=== PATIENT | female | born 1960 | race Caucasian/White ===

== ENCOUNTER 2020-11-16 04:50 | Emergency (ER) | payer MEDICARE ==
[~2020-11-16 04:50] MED LIST: ABILIFY5 MG PO; AMOXICILLIN500 MG PO; ASPIRIN325 MG PO; BACTRIM DS TAB1 EACH PO; BENTYL10 MG PO; BUSPIRONE HCL15 MG PO; COREG25 MG PO; DIAZEPAM10 MG PO; IMITREX50 MG PO; NEURONTIN300 MG PO; PAXIL40 MG PO; PERCOCET 7.5/321 TAB PO; SYNTHROID75 MCG PO; TIZANIDINE HCL4 MG PO; TRAZODONE 150M150 MG PO; VALTREX1000 MG PO; VICODIN 10/3251 EACH PO; VOLTAREN **OUT75 MG PO; ZOFRAN8 MG PO
[2020-11-16] MEDS ORDERED: ZOFRAN4 M1 PO (05:28)
[2020-11-16] MEDS ORDERED: ANTIVERT25 MG PO (05:28)
== END 2020-11-16 06:24 | disposition home or self-care (01) ==
LOC: FER 04:50
DX: S06.0X0A Concussion without loss of consciousness, initial encounter (principal); I10 Essential (primary) hypertension; F17.210 Nicotine dependence, cigarettes, uncomplicated; W19.XXXA Unspecified fall, initial encounter; Y92.009 Unspecified place in unspecified non-institutional (private) residence as the place of occurrence of the external cause
CPT/HCPCS: 70450

== ENCOUNTER 2021-01-03 17:44 | Emergency (ER) | payer MEDICARE ==
[~2021-01-03 17:44] MED LIST changes: +ANTIVERT25 MG PO; +ZOFRAN4 M1 PO
[2021-01-03 18:29] LABS: BILIRUBIN NEGATIVE (NEGATIVE); BLOOD 1+ Ery/uL (NEGATIVE); CLARITY HAZY (CLEAR); COLOR YELLOW (YELLOW); GLUCOSE (U) NORMAL (NORMAL); LEUKOCYTES 3+ Leu/uL (NEGATIVE); NITRITE POSITIVE (NEGATIVE); PROTEIN NEGATIVE (NEGATIVE); UROBILINOGEN 0.2 mg/dL (0.2-1.0)
[2021-01-03 18:37] LABS: BASOPHIL 0.3 % (0-2); EOSINOPHIL 2.5 % (0-5); HCT 46.2 % (37.0-47.0); HGB 16.2 g/dl (12.5-16.0); LYMPHOCYTE 43.5 % (15-48); MCHC 35.1 g/dL (32.0-36.0); MCV 88.3 fL (78.0-100.0); MONOCYTE 6.7 % (0-12); MPV 9.1 fL (6.0-9.5); NEUTROPHIL 46.8 % (41-80); NRBC 0; PLT 256 K/uL (150-400); RBC 5.23 M/uL (4.20-5.40); RDW 11.4 % (11.5-14.0)
[2021-01-03 18:39] LABS: WBC 11.8 K/uL (4.0-10.5)
[2021-01-03 18:46] LABS: BACTERIA 4+; URINARY WBC TNTC
[2021-01-03 18:53] LABS: ALBUMIN 3.3 g/dL (3.4-5.0); BILIRUBIN - TOTAL 0.4 mg/dL (0.2-1.0); BUN/CREAT RATIO (CALC) 18.6 RATIO; CREATININE 0.59 mg/dL (0.51-0.95); GLOBULIN (CALCULATION) 3.8 g/dL; POTASSIUM 4.2 mmol/L (3.5-5.1); TOTAL PROTEIN 7.1 g/dL (6.4-8.2)
[2021-01-03] MEDS ORDERED: BACTRIM DS TAB1 EACH PO (20:57)
[2021-01-03] MEDS ORDERED: ZOFRAN4 M1 PO (20:57)
[2021-01-06 00:06] LABS: CHLAMYDIA TRACHOMATIS, NAA Negative (Negative); NEISSERIA GONORRHOEAE, NAA Negative (Negative)
== END 2021-01-03 21:40 | disposition home or self-care (01) ==
LOC: FER 17:44
PROVIDERS: Emergency Medicine; Nurse Practitioner Family
DX: N39.0 Urinary tract infection, site not specified (principal); I10 Essential (primary) hypertension; F17.210 Nicotine dependence, cigarettes, uncomplicated; Z90.49 Acquired absence of other specified parts of digestive tract; Z98.890 Other specified postprocedural states; Z98.1 Arthrodesis status
CPT/HCPCS: 36415; 80053; 81001; 82150; 83690; 85025; 87076; 87088; 87186; 87491; 87591; J0696; J1885; J2405; J7030; Q9967

== ENCOUNTER 2021-05-03 15:43 | Emergency (ER) | payer MEDICARE ==
[2021-05-03 16:42] LABS: BILIRUBIN NEGATIVE (NEGATIVE); BLOOD 2+ Ery/uL (NEGATIVE); CLARITY CLEAR (CLEAR); COLOR YELLOW (YELLOW); GLUCOSE (U) NORMAL (NORMAL); LEUKOCYTES 3+ Leu/uL (NEGATIVE); NITRITE NEGATIVE (NEGATIVE); PROTEIN 1+ mg/dL (NEGATIVE); UROBILINOGEN 0.2 mg/dL (0.2-1.0)
[2021-05-03 16:45] LABS: BACTERIA 2+
[2021-05-03 16:47] LABS: AMPHETAMINES NEGATIVE (NEGATIVE); BARBITURATES NEGATIVE (NEGATIVE); ECSTASY (MDMA) NEGATIVE (NEGATIVE); MARIJUANA (THC) NEGATIVE (NEGATIVE); METHADONE NEGATIVE (NEGATIVE); OPIATES POSITIVE (NEGATIVE); OXYCODONE NEGATIVE (NEGATIVE)
[2021-05-03 16:53] LABS: BASOPHIL 0.4 % (0-2); EOSINOPHIL 1.2 % (0-5); HCT 43.5 % (37.0-47.0); HGB 15.6 g/dl (12.5-16.0); LYMPHOCYTE 31.4 % (15-48); MCH 31.1 pg (25.0-31.0); MCHC 35.9 g/dL (32.0-36.0); MCV 86.7 fL (78.0-100.0); MONOCYTE 5.5 % (0-12); MPV 9.2 fL (6.0-9.5); NEUTROPHIL 61.2 % (41-80); NRBC 0; PLT 217 K/uL (150-400); RBC 5.02 M/uL (4.20-5.40); RDW 11.4 % (11.5-14.0); WBC 11.2 K/uL (4.0-10.5)
[2021-05-03 17:12] LABS: ALBUMIN 3.7 g/dL (3.4-5.0); BILIRUBIN - TOTAL 0.5 mg/dL (0.2-1.0); BUN/CREAT RATIO (CALC) 17.1 RATIO; CREATININE 0.7 mg/dL (0.51-0.95); GLOBULIN (CALCULATION) 3.6 g/dL; POTASSIUM 4.3 mmol/L (3.5-5.1); TOTAL PROTEIN 7.3 g/dL (6.4-8.2)
[2021-05-03 18:03] LABS: LACTIC ACID 1.7 mmol/L (0.4-1.9)
[2021-05-03] MEDS ORDERED: AUGMENTIN 875-1 EACH PO (21:25)
[2021-05-03] MEDS ORDERED: ZOFRAN4 M1 PO (21:25)
== END 2021-05-03 21:53 | disposition home or self-care (01) ==
LOC: FER 15:43
PROVIDERS: Nurse Practitioner Family
DX: N39.0 Urinary tract infection, site not specified (principal); Z90.49 Acquired absence of other specified parts of digestive tract; Z86.73 Personal history of transient ischemic attack (TIA), and cerebral infarction without residual deficits; Z98.890 Other specified postprocedural states; F41.9 Anxiety disorder, unspecified; E03.9 Hypothyroidism, unspecified; R00.0 Tachycardia, unspecified; Z79.82 Long term (current) use of aspirin; Z79.891 Long term (current) use of opiate analgesic; Z79.899 Other long term (current) drug therapy; R07.89 Other chest pain; R30.0 Dysuria; R10.84 Generalized abdominal pain
CPT/HCPCS: 36415; 80053; 80305; 81001; 83605; 84145; 84484; 85025; 87040; 87076; 87088; 87186; 93005; J0696; J1170; J2270; J2405; J7030; Q9967

== ENCOUNTER 2021-12-11 11:28 | Emergency (ER) | payer MEDICARE ==
[~2021-12-11 11:28] MED LIST changes: +AUGMENTIN 875-1 EACH PO
[2021-12-11 12:04] LABS: BASOPHIL 0.4 % (0-2); EOSINOPHIL 1.4 % (0-5); HCT 44.4 % (37.0-47.0); HGB 15.4 g/dl (12.5-16.0); LYMPHOCYTE 32.7 % (15-48); MCH 30.1 pg (25.0-31.0); MCHC 34.7 g/dL (32.0-36.0); MCV 86.9 fL (78.0-100.0); MONOCYTE 4.7 % (0-12); MPV 8.8 fL (6.0-9.5); NEUTROPHIL 60.6 % (41-80); NRBC 0; PLT 238 K/uL (150-400); RBC 5.11 M/uL (4.20-5.40); RDW 11.8 % (11.5-14.0)
[2021-12-11 12:22] LABS: BILIRUBIN NEGATIVE (NEGATIVE); BLOOD 2+ Ery/uL (NEGATIVE); COLOR YELLOW (YELLOW); GLUCOSE (U) NORMAL (NORMAL); LEUKOCYTES 2+ Leu/uL (NEGATIVE); NITRITE NEGATIVE (NEGATIVE); PROTEIN NEGATIVE (NEGATIVE); UROBILINOGEN 0.2 mg/dL (0.2-1.0)
[2021-12-11 12:24] LABS: CLARITY HAZY (CLEAR)
[2021-12-11 12:37] LABS: BACTERIA TRACE; URINARY RBC RARE
[2021-12-11 12:40] LABS: URINARY WBC TNTC
[2021-12-11 12:44] LABS: ALBUMIN 3.9 g/dL (3.4-5.0); BILIRUBIN - TOTAL 0.8 mg/dL (0.2-1.0); CREATININE 0.57 mg/dL (0.51-0.95); GLOBULIN (CALCULATION) 3.3 g/dL; POTASSIUM 3.8 mmol/L (3.5-5.1); TOTAL PROTEIN 7.2 g/dL (6.4-8.2)
[2021-12-11] MEDS ORDERED: BACTRIM DS TAB1 EACH PO (18:37)
== END 2021-12-11 18:59 | disposition home or self-care (01) ==
LOC: FER 11:28
PROVIDERS: Emergency Medicine
DX: N39.0 Urinary tract infection, site not specified (principal); K29.70 Gastritis, unspecified, without bleeding; I10 Essential (primary) hypertension
CPT/HCPCS: 36415; 80053; 81001; 82150; 83690; 85025; 96372; J0696; J1885; J2270

== ENCOUNTER 2022-05-17 13:32 | Emergency (ER) | payer MEDICARE ==
[2022-05-17] MEDS ORDERED: MEDROL 4MG DOSEP4 MG PO (16:23)
[2022-05-17] MEDS ORDERED: CYCLOBENZAPRINE10 MG PO (16:23)
== END 2022-05-17 16:40 | disposition home or self-care (01) ==
LOC: FER 13:32
DX: S33.5XXA Sprain of ligaments of lumbar spine, initial encounter (principal); S23.3XXA Sprain of ligaments of thoracic spine, initial encounter; S70.02XA Contusion of left hip, initial encounter; W01.0XXA Fall on same level from slipping, tripping and stumbling without subsequent striking against object, initial encounter
CPT/HCPCS: 72128; 72131; 73502; 96372; J1100; J2270

== ENCOUNTER 2022-06-27 12:43 | Emergency (ER) | payer MEDICARE ==
[~2022-06-27 12:43] MED LIST changes: +CYCLOBENZAPRINE10 MG PO; +MEDROL 4MG DOSEP4 MG PO
[2022-06-27 14:20] LABS: BILIRUBIN NEGATIVE (NEGATIVE); BLOOD 3+ Ery/uL (NEGATIVE); CLARITY HAZY (CLEAR); COLOR YELLOW (YELLOW); GLUCOSE (U) NORMAL (NORMAL); LEUKOCYTES 3+ Leu/uL (NEGATIVE); NITRITE NEGATIVE (NEGATIVE); PROTEIN 1+ mg/dL (NEGATIVE); SPECIFIC GRAVITY 1.015 (1.001-1.030); UROBILINOGEN 0.2 mg/dL (0.2-1.0)
[2022-06-27 14:28] LABS: BACTERIA TRACE; SQUAMOUS EPITHELIAL CELLS RARE; URINARY RBC 20-50; URINARY WBC TNTC
[2022-06-27 15:00] LABS: BASOPHIL 0.3 % (0-2); EOSINOPHIL 1.3 % (0-5); HCT 45.6 % (37.0-47.0); LYMPHOCYTE 28.5 % (15-48); MCH 30.4 pg (25.0-31.0); MCHC 35.1 g/dL (32.0-36.0); MCV 86.7 fL (78.0-100.0); MONOCYTE 4.9 % (0-12); MPV 9.2 fL (6.0-9.5); NEUTROPHIL 64.7 % (41-80); NRBC 0; PLT 218 K/uL (150-400); RBC 5.26 M/uL (4.20-5.40); RDW 11.7 % (11.5-14.0); WBC 13.2 K/uL (4.0-10.5)
[2022-06-27 15:29] LABS: BUN/CREAT RATIO (CALC) 12.3 RATIO; CREATININE 0.65 mg/dL (0.51-0.95); POTASSIUM 3.9 mmol/L (3.5-5.1)
[2022-06-27] MEDS ORDERED: CEPHALEXIN500 MG PO (17:45)
== END 2022-06-27 18:18 | disposition home or self-care (01) ==
LOC: FER 12:43
PROVIDERS: Emergency Medicine
DX: N30.90 Cystitis, unspecified without hematuria (principal); E03.9 Hypothyroidism, unspecified; I10 Essential (primary) hypertension; Z79.890 Hormone replacement therapy; Z79.899 Other long term (current) drug therapy
CPT/HCPCS: 36415; 80048; 81001; 85025; 87210; J0696; J1885; J2270; J2405; Q9967